=== PATIENT | male | born 1995 | race Caucasian/White ===

== ENCOUNTER 2023-11-28 23:23 | Emergency (ER) | payer OTHER ==
[~2023-11-28] VITALS: Ht 172.7 cm; Wt 84.6 kg
[2023-11-29] MEDS ORDERED: IBUPROFEN 800 MG TAB PO ONE (00:55)
[2023-11-29 02:07] VITALS: BP 118/64; TEMP 98.6; O2SAT 99
== END 2023-11-29 02:09 | disposition home or self-care (01) ==
LOC: M ED 23:23
DX: S83.91XA Sprain of unspecified site of right knee, initial encounter (principal); Z88.0 Allergy status to penicillin; Z88.1 Allergy status to other antibiotic agents; Y92.9 Unspecified place or not applicable; Y93.66 Activity, soccer; Y99.9 Unspecified external cause status

== ENCOUNTER → 2024-02-18 | Outpatient (CLI) | payer OTHER | LOC: M PLAIMG 06:33 | PROVIDERS: ATTEND Physician Assistant | DX: M25.561 Pain in right knee (principal); R93.7 Abnormal findings on diagnostic imaging of other parts of musculoskeletal system ==

== ENCOUNTER 2024-04-17 06:53 | Day surgery (SDC) | payer OTHER ==
[~2024-04-17] VITALS: Ht 172.7 cm; Wt 81.1 kg
[2024-04-17] MEDS ORDERED: LR 1,000 ML IV SCH (07:00)
[2024-04-17] MEDS ORDERED: ROCURONIUM BROMIDE 50MG/5ML VIAL As Ordered ONE (10:01)
[2024-04-17] MEDS ORDERED: LIDOCAINE 2% 100MG/5ML SDV (FOR ANES.) As Ordered ONE (10:01)
[2024-04-17] MEDS ORDERED: SUGAMMADEX SODIUM 500 MG/5 ML VIAL (BRIDION) As Ordered ONE (10:01)
[2024-04-17] MEDS ORDERED: ONDANSETRON 4MG 2ML VIAL As Ordered ONE (10:01)
[2024-04-17] MEDS ORDERED: propofoL 200 MG/20 ML VIAL As Ordered ONE (10:01)
[2024-04-17] MEDS ORDERED: fentaNYL 250 MCG/5 ML INJECTION As Ordered ONE (10:05)
[2024-04-17] MEDS ORDERED: dexAMETHasone 10MG/1ML VIAL PRES.FREE PN ONE (10:10)
[2024-04-17] MEDS: MIDAZOLAM INJ 2MG/2ML VIAL IV PRN (10:32)
[2024-04-17] MEDS: fentaNYL 100 MCG/2 ML INJECTION IV PRN ×2 (10:32→15:46)
[2024-04-17] MEDS: LIDOCAINE 1% SDV 5ML VIAL PN ONE (10:35)
[2024-04-17] MEDS: EPINEPHrine INJ 1 MG/ML 1ML AMP PN ONE (10:35)
[2024-04-17] MEDS: ROPIvacaine 0.5% 30ML VIAL PN ONE (10:35)
[2024-04-17] MEDS ORDERED: ceFAZolin 2 GM/D5W 50 ML IV BAG As Ordered ONE (11:55)
[2024-04-17] MEDS: TRANEXAMIC ACID 100 MG/ML 10ML VIAL As Ordered ONE (12:00)
[2024-04-17] MEDS ORDERED: ACETAMINOPHEN 1000MG 100ML IV BAG As Ordered ONE (12:05)
[2024-04-17] MEDS: ceFAZolin SOD 2 GM in IV 1 EA IV ONE (12:27)
[2024-04-17] MEDS: ROPIvacaine 0.5% 30ML VIAL As Ordered ONE (13:30)
[2024-04-17] MEDS: EPINEPHrine 1MG/ML INJ 30ML MD-VIAL As Ordered ONE (13:30)
[2024-04-17] MEDS ORDERED: HYDROmorphone HCL 2MG/ML 1ML VIAL As Ordered ONE (13:41)
[2024-04-17] MEDS: ONDANSETRON 4MG 2ML VIAL IV PRN (15:06)
[2024-04-17] MEDS ORDERED: GABA-282 PO (15:11)
[2024-04-17] MEDS ORDERED: ACET-897 PO (15:11)
[2024-04-17] MEDS ORDERED: ONDA-282 PO (15:11)
[2024-04-17] MEDS ORDERED: NAPR-885 PO (15:11)
[2024-04-17] MEDS ORDERED: OXYC-517 PO (15:11)
[2024-04-17] MEDS: METOCLOPRAMIDE INJ 10MG/2ML VIAL IV PRN (15:27)
[2024-04-17] MEDS ORDERED: HYDROMORPHONE HCL 0.5 MG/ 0.5 ML SYRINGE IV PRN (15:50)
[2024-04-17] MEDS: PROMETHAZINE 25MG/ML 1ML VIAL IV PRN (16:07)
[2024-04-17] MEDS: oxyCODONE 5MG TAB PO PRN (17:35)
[2024-04-17 18:20] VITALS: BP 141/86; TEMP 97.2; O2SAT 97
== END 2024-04-17 18:25 | disposition home or self-care (01) ==
LOC: M SDC 06:53
PROVIDERS: ATTEND Student in an Organized Health Care Education/Training Program
DX: M23.611 Other spontaneous disruption of anterior cruciate ligament of right knee (principal); M23.200 Derangement of unspecified lateral meniscus due to old tear or injury, right knee; F17.218 Nicotine dependence, cigarettes, with other nicotine-induced disorders; F12.10 Cannabis abuse, uncomplicated; Z88.0 Allergy status to penicillin
CPT/HCPCS: 29881; 29888; 64447; 73560; C1713; J0131; J0171; J0690; J1100; J1170; J2250; J2405; J2550; J2765; J2795; J3010